=== PATIENT | male | born 1975 | race Caucasian/White ===

== ENCOUNTER 2025-04-14 12:31 | Outpatient (OUT) | payer OTHER, SELFPAY | END 2025-04-14 12:32 | disposition home or self-care (01) | LOC: PST 12:31 | PROVIDERS: Visit Provider Urology | DX: Z01.818 Encounter for other preprocedural examination (principal); N20.0 Calculus of kidney ==

== ENCOUNTER 2025-04-15 06:28 | Day surgery (SDC) | payer OTHER, SELFPAY ==
[2025-04-15] VITALS (10 sets, daily range): BP systolic 107–129; BP diastolic 64–76; PULSE 69–93; TEMP 36.2–36.8; O2SAT 92–98; BMI 32.9
--- NOTE | 2025-04-15 06:31 | ECG_ITS ---
The [facility] Test Date: 2025-04-15 Pat Name: JONG MARTÍNEZ Department: Room: - Gender: Male Regulatory Affairs Director: : 1975 Requested By: LINDA NASH Order Number: [id number] Reading MD: Jose Luis Melara Measurements Intervals [place] Rate: 71 P: 46 [place]: 174 QRS: 61 QRSD: 98 T: 48 QT: 424 QTc: 463 Interpretive Statements SINUS RHYTHM LOW QRS VOLTAGE IN PRECORDIAL LEADS [QRS DEFLECTION < 1.0 mV IN CHEST LEADS] No previous ECG available for comparison Electronically Signed On 04-16-2025 13:32:28 EDT by Jose Luis Melara
[2025-04-15 06:56] LABS: Hematocrit 43.6 % (42.0-54.0); Hemoglobin 15.3 g/dL (14.0-18.0); Immature Granulocytes Abs Auto 0.02 10^3/uL (0.00-0.03); Immature Granulocytes Pct Auto 0.2 % (0.0-0.5); Lymphocytes Absolute Auto 1.4 10^3/uL (1.2-3.8); Mean Corpuscular HGB Conc 35.1 g/dL (29.9-35.2); Mean Corpuscular Hemoglobin 33.4 pg (25.9-34.0); Mean Corpuscular Volume 95.2 fL (80.0-94.0); Platelet Count 295 10^3/uL (150-450); Red Blood Count 4.58 10^6/uL (4.70-6.10); White Blood Count 9.3 10^3/uL (4.0-11.0)
[2025-04-15 06:58] LABS: Anion Gap 10.5; Blood Urea Nitrogen 15.0 mg/dL (7.0-18.0); Calcium 8.9 mg/dL (8.5-10.1); Carbon Dioxide 32.2 mmol/L (21.0-32.0); Chloride 101 mmol/L (98-107); Estimated GFR (African America >60 (>=60 mL/min/1.73m^2); Estimated GFR (Non-African Ame >60 (>=60 mL/min/1.73m^2); Glucose 98 mg/dL (74-106); Potassium 3.7 mmol/L (3.5-5.1); Sodium 140 mmol/L (136-145)
[2025-04-15 07:04] LABS: INR 1.07; Partial Thromboplastin Time 31.5 sec (22.3-36.2); Prothrombin Time 11.3 sec (9.0-11.6)
--- NOTE | 2025-04-15 07:17 | XR_ITS ---
The [address] [address] Patient Name: JONG MARTÍNEZ MRN: [id number] date: 1975 Sex: M Assigned Patient Location: [facility] Current Patient Location: [facility] Accession/Order Number: [id number] Exam Date: 04/15/2025 07:30 Report Date: 04/15/2025 10:16 At the request of: LINDA NASH MD Procedure: XR chest 1V PORTABLE AP ERECT CHEST 1720 hours CLINICAL HISTORY: preop clearance. Hx of CAD COMPARISON: None The heart is within normal limits. There is no vascular congestion. No consolidation is seen. There is no effusion or pneumothorax. The osseous structures are intact. XR/XR chest 1V IMPRESSION: NO ACUTE FINDINGS Impression dictated by: Kendra Ponce M.D. 04/15/2025 10:16 AM Dictation Location: [place] [address] Electronically authenticated by: [id number] Y Date: 04/15/2025 10:16
[2025-04-15] MEDS: CEFAZOLIN SODIUM 2 GM/50 ML D5W PREMIX IV (08:02)
[2025-04-15] MEDS: IOHEXOL 300 MG/ML - 50 ML BTL INJ (08:41)
--- NOTE | 2025-04-15 08:50 | P.URON_ITS ---
Urology Surgery Operative Note Operative Note Procedure Date: 04/15/25 Time Out Performed: yes Pre-op Diagnosis: Left ureteral and renal calculi Post-op Diagnosis: other (Impacted left ureteral calculi and massive hydroureteronephrosis) Procedures performed: 1. Cystoscopy. 2. Left retrograde pyelogram. 3. Left ureteroscopy. 4. Placement of 6 Mohawk variable length left ureteral stent Anesthesia: NISREEN Primary Surgeon: Óscar Redding Complications: None Estimated blood loss (mL): 5 Findings: 1. Severe impaction of ureteral calculi at L3-4 2. Severe ureteral stricture at L3-4. 3. Bulbar urethral stricture Specimens: None Drains: 6 Mohawk variable length left ureteral stent Indications for Procedures: This gentleman has gross hematuria and left flank pain. His CTU showed some ureteral calculi and left hydroureteronephrosis. He now presents for definitive ureteroscopic stone manipulation and left stent placement. He has signed an informed consent after risks were explained. Detailed description of Procedure: The patient was brought to the operating room and placed on the operating room table in the supine position. SCDs were placed on the lower extremities and turned on and functioning during the entire case. Timeout was done by all parties in the room. We all agreed upon the patient's identification and the planned procedures for this patient. Genn. anesthesia was then administered. The patient was then repositioned into the modified dorsal lithotomy position. All pressure points were satisfactorily padded. Genitalia were sterilely prepped and draped in usual fashion. I started by passing a 22 Mohawk Olympus cystoscope per urethra and into the bladder. He had a significant bulbar stricture but I was able to eventually get the scope through it and then into the bladder. Prostate showed by lobar obstruction. Panendoscopy in the bladder revealed no evidence of any stones or tumors. I then passed a Glidewire through the scope and cannulated the left ureter. I was able to get it up to the L3 level when it met resistance. Repeated attempt at passage eventually produced the wire to ascend beyond the area of concern and proximally. It appeared as though it was in the kidney but I was not certain. Therefore the scope was removed and I then passed a open-ended catheter over the wire up to the area. The wire was then removed. I then shot a retrograde through this area. Contrast would not go beyond this area. I then removed the catheter and then passed a semirigid ureteroscope through the urethra and into the bladder and up the left ureter. I was able to get to this area of concern. I could see a few stones tightly impacted to the ureteral wall. There was also stricture formation. I then passed a wire through the scope and eventually I was able to pass the wire proximal to these impacted stones anteriorly. The wire then went up and I could see the wire curling up near the 12th rib. The ureteroscope was then removed and I then repassed the open-ended catheter over the wire and was able to eventually get it beyond the area of stones. The wire was then removed and I then reshot a retrograde. This clearly showed massively dilated calyces and renal pelvis and proximal ureter down to the area at the L3-4 level. The wire was repassed back through the catheter and put up to the kidney. Catheter was removed. I then repassed the ureteroscope adjacent to the wire up the left ureter. Massive amounts of inflammatory debris were coming down from the kidney. I evaluated the area of concern and felt that it was unsafe at this time to attempt to laser and therefore the scope was then removed. I then backloaded the cystoscope over the wire and passed it into the bladder. I then slid a 6 Mohawk variable length ureteral stent over the wire and into the kidney. The wire was removed and there were good curls within the kidney and in the bladder. High-pressure E flux of cloudy debris was coming down through and around the stent into the bladder. The bladder was drained of its contents and the scope was then removed. He was then transferred to a [facility] bed and wheeled to PACU in stable condition. The plan is that he will cool down with the stent and antibiotics. We will bring him back for stone manipulation in a couple weeks.
== END 2025-04-15 10:45 | disposition home or self-care (01) ==
PROVIDERS: Visit Provider Urology
PROC: (CPT 910; principal; 2025-04-15 08:00)
DX: N13.2 Hydronephrosis with renal and ureteral calculous obstruction (principal); N13.1 Hydronephrosis with ureteral stricture, not elsewhere classified; N35.912 Unspecified bulbous urethral stricture, male; R31.0 Gross hematuria; Z87.442 Personal history of urinary calculi; R39.14 Feeling of incomplete bladder emptying; G47.33 Obstructive sleep apnea (adult) (pediatric); E78.5 Hyperlipidemia, unspecified; I10 Essential (primary) hypertension; K21.9 Gastro-esophageal reflux disease without esophagitis; E66.01 Morbid (severe) obesity due to excess calories; Z68.32 Body mass index [BMI] 32.0-32.9, adult
CPT/HCPCS: 52332; 52351; 36415; 71045; 74420; 80048; 85025; 85610; 85730; 93005; J0131; J0690; J1100; J1885; J2250; J2405; J2704; J3010; Q9967

== ENCOUNTER 2025-04-27 14:08 | Outpatient (OUT) | payer OTHER, SELFPAY ==
--- OUTSIDE RECORDS SUMMARY | 2025-04-27 14:11 | XMS_ITS | Encounter Summary ---
Author Organization [facility] Address [address] [place] [address] Care Team Providers Care Automotive Drivability Technician Name Role Phone Jessica Kent MD Primary Care Provider [phone] Shantell Cerna MD Unavailable Encounter Details Date Type Department Care Team ([facility] st Contact Info) Description 04/05/2025 Orders Only [facility] Family Medicine [address] [place] [address] Norma Balderas MD [address] [place] [address] Social History Tobacco Use Types Packs/Day Years Used Date Smoking Tobacco: Never Smokeless Tobacco: Never Alcohol Use Standard Drinks/Week Comments Not Currently 0 (1 standard drink = 0.6 oz pure alcohol) Caffeine intake: 3-4 cups per day PHQ-2 Answer Date Recorded Patient Health Questionnaire-2 Score 0 11/30/2024 Sex and Gender Information Value Date Recorded Sex Assigned at Not on file Legal Sex Male 7:21 PM EDT Gender Identity Not on file Sexual Orientation Not on file documented as of this encounter Plan of Treatment Not on file documented as of this encounter Procedures Procedure Name Priority Date/Time Associated Diagnosis Comments CT UROGRAM W AND WO IV CONTRAST Routine 04/02/2025 9:48 AM EDT documented in this encounter Results * CT UROGRAM W AND WO IV CONTRAST (04/02/2025 9:48 AM EDT) Anatomical Region Laterality Modality Ureter, Upper urinary tract Comp uted Tomography us Norma Andrey MD IMG CT PROCEDURES Final Result documented in this encounter Visit Diagnoses Not on filedocumented in this encounter Care Teams Automotive Drivability Technician Relationship Specialty Start Date End Date Jessica Kent MD [address] [place] [address] PCP - General Family Medicine 12/25/22 Shantell Cerna MD [address] [place] [address] PCP - Medical [place] [employer] 10/17/13 08/18/99 documented as of this encounter
--- OUTSIDE RECORDS SUMMARY | 2025-04-27 14:11 | XMS_ITS | Encounter Summary ---
Author Organization [facility] Address [address] [place] [address] Care Team Providers Care Costumer Assistant Name Role Phone Jessica Kent MD Primary Care Provider [phone] Shantell Cerna MD Unavailable [phone] Encounter Details Date Type Department Care Team ([facility] st Contact Info) Description 11/08/2023 Orders Only [facility] Family Medicine [address] [place] [address] Eliel Guardado MD [address] [place] [address], [address], [address] [address] Social History Tobacco Use Types Packs/Day Years Used Date Smoking Tobacco: Never Smokeless Tobacco: Never Alcohol Use Standard Drinks/Week Comments Not Currently 0 (1 standard drink = 0.6 oz pure alcohol) Caffeine intake: 3-4 cups per day Sex and Gender Information Value Date Recorded Sex Assigned at Not on file Legal Sex Male 7:21 PM EDT Gender Identity Not on file Sexual Orientation Not on file documented as of this encounter Plan of Treatment Not on file documented as of this encounter Procedures Procedure Name Priority Date/Time Associated Diagnosis Comments HM COLONOSCOPY Routine 10/29/2023 4:30 PM EDT documented in this encounter Results * Hm Colonoscopy (10/29/2023 4:30 PM EDT) Anatomical Region Laterality Modality Other Eliel Guardado MD HEALTH MAINTENANCE Final Res ult documented in this encounter Visit Diagnoses Not on filedocumented in this encounter Care Teams Costumer Assistant Relationship Specialty Start Date End Date Jessica Kent MD [address] [place] [address] PCP - General Family Medicine 12/25/22 Shantell Cerna MD [address] [place] [address] PCP - Medical [place] [employer] 10/17/13 08/18/99 documented as of this encounter
--- OUTSIDE RECORDS SUMMARY | 2025-04-27 14:11 | XMS_ITS | Clinical Summary ---
Author Organization [facility] Healthcare Address [address] [place] [address] Care Team Providers Care Collator Name Role Phone Jessica Kent MD Primary Care Provider [phone] Shantell Cerna MD Unavailable [phone] Allergies Active Allergy Reactions Criticality Noted Date Comments Hydrocodone-Acetaminophen Nausea Only 4 Vicodin Lisinopril 09/05/2023 Other Reaction(s): dizziness and CP Medications aspirin 81 MG EC tablet 1 (one) time each day at the same time Active nitroglycerin (Nitrostat) 0.3 MG SL tablet if needed 08/21/19 23 Active cyclobenzaprine (Flexeril) 10 MG tabletIndications: Chronic pain syndrome TAKE 1/2 TO 1 TABLET ORALLY THREE TIMES A DAY NEEDED 60 tablet 2 09/15/19 25 Active Semaglutide-Weight Management (Wegovy) 0.25 MG/0.5ML solution auto-injectorIndic ations:Morbid obesity ([facility]) Inject 0.25 mg under the skin 1 (one) time per week 2 mL 12/01/19 25 Active azithromycin (Zithromax) 250 MG tabletIndications: Sinus pressure Take 2 tabs PO x 1 day then 1 tab PO daily x 4 days 6 tablet 12/01/19 25 Active ranolazine (Ranexa) 500 MG 12 hr tabletIndications: Arteriosclerosis of coronary artery Take 1 tablet (500 mg) by mouth in the morning and 1 tablet (500 mg) before bedtime. 180 tablet 3 12/01/19 25 026 Active metoprolol succinate XL (Toprol-XL) 25 MG 24 hr tabletIndications: Benign essential HTN Take 0.5 tablets (12.5 mg) by mouth Daily 15 tablet 11 01/02/20 25 Active etodolac XL (Lodine XL) 600 MG 24 hr tabletIndications: Other chronic pain Take 1 tablet (600 mg) by mouth Daily as needed (pain) 30 tablet 3 01/21/20 25 Active losartan (Cozaar) 25 MG tabletIndications: Primary hypertension TAKE 1 TABLET BY MOUTH EVERY DAY 30 tablet 11 03/16/20 25 Active hydroCHLOROthiazid e (HYDRODiuril) 25 MG tabletIndications: Primary hypertension TAKE 1 TABLET BY MOUTH EVERY DAY IN THE MORNING 30 tablet 11 03/16/20 25 Active atorvastatin (Lipitor) 80 MG tabletIndications: Mixed hyperlipidemia TAKE 1 TABLET BY MOUTH EVERY DAY 30 tablet 11 04/12/20 25 Active isosorbide mononitrate ER (Imdur) 60 MG 24 hr tabletIndications: Essential hypertension TAKE 1 TABLET (60 MG) BY MOUTH IN THE MORNING 30 tablet 11 04/12/20 25 026 Active atorvastatin (Lipitor) 80 MG tabletIndications: Mixed hyperlipidemia TAKE 1 TABLET BY MOUTH EVERY DAY 30 tablet 04/16/20 24 025 Discontinued isosorbide mononitrate ER (Imdur) 60 MG 24 hr tabletIndications: Essential hypertension TAKE 1 TABLET (60 MG) BY MOUTH IN THE MORNING 30 tablet 11 04/16/20 24 025 Discontinued Active Problems Problem Noted Date Diagnosed Date Asymptomatic microscopic hematuria 01/21/2024 Bilateral low back pain 01/21/2024 Severe obesity (BMI 35.0-39.9) with comorbidity 01/21/2024 Arteriosclerosis of coronary artery 01/21/2024 Coronary artery disease invo lving [place] heart without angina pectoris 01/21/2024 DDD (degenerative disc disease), cervical 2023 Gastroesophageal reflux disease 01/21/2024 Hemorrhoids 01/21/2024 History of kidney stones 01/21/2024 Impingement syndrome of shoulder region 01/21/20 24 Mixed hyperlipidemia 01/21/2024 Seasonal allergies 01/21/2024 Hypertension 01/21/2024 Essential hypertension 05/20/2023 Resolved Problems Problem Noted Date Diagnosed Date Resolved Date Coronary artery disease of n ative artery of [place] heart with stable angina pectoris 01/21/2024 06/05/2024 Encounters Date Type Department Care Team Description [facility] [address] [place] [phone] Jessica Kent MD Mixed hyperlipidemia ; Essential hypertension 04/05/2025 Orders Only [facility] [address] [place] [phone] Norma Balderas MD 03/16/2025 Refill [facility] [address] [place] [phone] Shantell Cerna MD Primary hypertension from Last 3 Months Immunizations Immunization Administration Dates Next Due Tdap 10/18/2008 Tetanus toxoid, adsorbed 10/18/2008 Family History Medical History Relation Name Comments Alzheimer's disease Father Dementia Father Heart attack Father Relation Name Status Comments Brother x2 Daughter x2 Father Mother Alive Sister x6 Social History Tobacco Use Types Packs/Day Years Used Date Smoking Tobacco: Never Smokeless Tobacco: Never Tobacco Cessation:Counseling Given: Not Answered Alcohol Use Standard Drinks/Week Comments Not Currently 0 (1 standard drink = 0.6 oz pure alcohol) Caffeine intake: 3-4 cups per day PHQ-2 Answer Date Recorded Patient Health Questionnaire-2 Score 0 11/30/2024 Sex and Gender Information Value Date Recorded Sex Assigned at Not on file Legal Sex Male 7:21 PM EDT Gender Identity Not on file Sexual Orientation Not on file Last Filed Vital Signs Vital Sign Reading Time Taken Comments Blood Pressure 130/80 11/30/2024 3:59 PM EDT Pulse 98 11/30/2024 3:59 PM EDT Temperature 36.9 C (98.4 F) 11/30/2024 3:59 PM EDT Respiratory Rate - - Oxygen Saturation 98% 11/30/2024 3:59 PM EDT Inhaled Oxygen Concentration - - Weight 116 kg (255 lb 3.2 oz) 11/30/2024 3:59 PM EDT Height 172.7 cm (5' 8 ) 11/30/2024 3:59 PM EDT Body Mass Index 38.8 11/30/2024 3:59 PM EDT Plan of Treatment Health Maintenance Due Date Last Done Comments CT Colonography 1975 FIT-DNA 1975 FIT 1975 FOBT 1975 Sigmoidoscopy 1975 Influenza Vaccine (#1) 2025 Colonoscopy 10/28/2033 10/29/2023, 10/29/2023 Colorectal Cancer Screening 10/28/2033 Procedures Procedure Name Priority Date/Time Associated Diagnosis Comments CT UROGRAM W AND WO IV CONTRAST Routine 04/02/2025 9:48 AM EDT HM COLONOSCOPY Routine 10/29/2023 4:30 PM EDT from Last 3 Months or Most Recently Relevant to Health Maintenance Results * CT UROGRAM W AND WO IV CONTRAST (04/02/2025 9:48 AM EDT) Anatomical Region Laterality Modality Ureter, Upper urinary tract Comp uted Tomography us Norma Balderas MD IMG CT PROCEDURES Final Result * Colonoscopy (10/29/2023 4:30 PM EDT) Anatomical Region Laterality Modality Other us Eliel Guardado MD HEALTH MAINTENANCE Final Res ult from Last 3 Months or Most Recently Relevant to Health Maintenance Insurance [employer] Care Teams Collator Relationship Specialty Start Date End Date Jessica Kent MD [address] [place] [address] PCP - General Family Medicine 12/25/22 Shantell Cerna MD [address] [place] [address] PCP - Medical [facility] 10/17/13 08/18/99
--- OUTSIDE RECORDS SUMMARY | 2025-04-27 14:11 | XMS_ITS | Clinical Summary ---
Author Organization [facility] Address [address] [place] [address] Phone Care Team Providers Care Assistant Operator Name Role Phone Unavailable Primary Care Provider Unavailabl e Social History Tobacco Use Types Packs/Day Years Used Date Smoking Tobacco: Never Assessed Sex and Gender Information Value Date Recorded Sex Assigned at Not on file Legal Sex Male 2:32 PM EST Gender Identity Not on file Sexual Orientation Not on file Plan of Treatment Health Maintenance Due Date Last Done Comments CT Colonography 1975 Colonoscopy 1975 Colorectal Cancer Screening 1975 FIT-DNA (Cologuard) 1975 FIT 1975 HIV Screening 1975 Lipid Panel 1975 Sigmoidoscopy 1975 Yearly Adult Physical 1975 MMR Vaccines (1 of 1 - Stand payal series) 1975 Hepatitis C Screening 1992 Hepatitis B Vaccines (1 of 3 - 19+ 3-dose series) 1993 DTaP/Tdap/Td Vaccines (1 - Tdap) 1996 PSA Prostate Cancer Screening 2024 Pneumococcal Vaccine (1 of 1 - PCV) 2024 Zoster Vaccines (1 of 2) 2024 COVID-19 Vaccine (1 - 2023-2 5 season) 2025 Influenza Vaccine (#1) 2025 HIB Vaccines Aged Out No longer eligi ble based on patient's age to complete this topic HPV Vaccines Aged Out No longer eligi ble based on patient's age to complete this topic Hepatitis A Vaccines Aged Out No long er eligible based on patient's age to complete this topic IPV Vaccines Aged Out No longer eligi ble based on patient's age to complete this topic Meningococcal Vaccine Aged Out No liz jolynn eligible based on patient's age to complete this topic Rotavirus Vaccines Aged Out No longer eligible based on patient's age to complete this topic
== END 2025-04-27 14:09 | disposition home or self-care (01) ==
LOC: PST 14:08
PROVIDERS: Visit Provider Urology
DX: Z01.818 Encounter for other preprocedural examination (principal); N20.0 Calculus of kidney

== ENCOUNTER 2025-05-06 06:56 | Day surgery (SDC) | payer OTHER, SELFPAY ==
[2025-05-06] VITALS (12 sets, daily range): BP systolic 111–128; BP diastolic 69–81; PULSE 67–91; TEMP 36.2–36.3; O2SAT 95–100; BMI 31.9
--- OUTSIDE RECORDS SUMMARY | 2025-05-06 06:59 | XMS_ITS | Clinical Summary ---
Author Organization [facility] Address [address] [place] [address] Phone Care Team Providers Care Fabric Pattern Grader Name Role Phone Unavailable Primary Care Provider [...]
--- OUTSIDE RECORDS SUMMARY | 2025-05-06 06:59 | XMS_ITS | Clinical Summary ---
Author Organization [facility] Healthcare Address [address] [place] [address] Care Team Providers Care Server Security Administrator Name Role Phone Jessica Kent MD Primary Care Provider [phone] Shantell Cerna MD Unavailable [phone] Allergies Active Allergy Reactions Criticality Noted [...] (Wegovy) 0.25 MG/0.5ML solution auto-injectorIndic ations:Morbid obesity ([facility]) Inject 0.25 mg under the skin 1 [...] artery 01/21/2024 Coronary artery disease invo lving [place] heart without angina pectoris 01/21/2024 DDD (degenerative disc disease), cervical 2023 Gastroesophageal reflux disease 01/21/2024 Hemorrhoids 01/21/2024 History of kidney stones 01/21/2024 Impingement syndrome of shoulder region 01/21/20 24 Mixed hyperlipidemia 01/21/2024 Seasonal allergies 01/21/2024 Hypertension 01/21/2024 Essential hypertension 05/20/2023 Resolved Problems Problem Noted Date Diagnosed Date Resolved Date Coronary artery disease of n ative artery of [place] heart with stable angina pectoris 01/21/2024 06/05/2024 Encounters Date Type Department Care Team Description 04/12[facility] [address] [place] [phone] Jessica Kent MD Mixed hyperlipidemia ; Essential hypertension 04/05/2025 Orders Only [facility] [address] [place] [phone] Norma Balderas MD 03/16/2025 Refill N[facility] [address] [place] [phone] Shantell Cerna MD Primary hypertension from Last [...] Health Maintenance Insurance [employer] Care Teams Server Security Administrator Relationship Specialty Start Date End Date Jessica Kent MD [address] [place] [address] PCP - General Family Medicine 12/25/22 Shantell Cerna MD [address] [place] [address] PCP - Medical [facility] 10/17/13 08/18/99
--- OUTSIDE RECORDS SUMMARY | 2025-05-06 06:59 | XMS_ITS | Encounter Summary ---
Author Organization [facility] Address [address] [place] [address] Care Team Providers Care Rolling Chair Pusher Name Role Phone Jessica Kent MD Primary Care Provider Shantell Cerna MD Unavailable Encounter Details Date Type Department Care Team ([facility] st Contact Info) Description 04/05/2025 Orders Only [facility] Family Medicine [address] [place] [address] Norma Balderas MD [address] [place] [address] Social History Tobacco Use Types Packs/Day Years [...] on filedocumented in this encounter Care Teams Rolling Chair Pusher Relationship Specialty Start Date End Date Jessica Kent MD [address] [place] [address] PCP - General Family Medicine 12/25/22 Shantell Cerna MD [address] [place] [address] PCP - Medical [place] [employer] 10/17/13 08/18/99 documented as of this encounter
[2025-05-06] MEDS: CEFAZOLIN SODIUM 2 GM/50 ML D5W PREMIX IV (08:47)
--- NOTE | 2025-05-06 10:03 | P.URON_ITS ---
Urology Surgery Operative Note Operative Note Procedure Date: 05/06/25 Time Out Performed: yes Pre-op Diagnosis: Impacted left ureteral calculi; left ureteral stricture status post stent placement Post-op Diagnosis: same as pre-op Procedures performed: 1. Cystoscopy. 2. Left stent changed to 7 Burkinan variable length. 3. Left ureteroscopy. 4. Thulium laser lithotripsy of left ureteral calculi. 5. Stone basket extraction from left ureter. 6. Left pyeloscopy. Anesthesia: GETA Primary Surgeon: Óscar Redding Complications: None Estimated blood loss (mL): 5 Findings: 1. Severely impacted multiple left ureteral calculi at L3 and UPJ. 2. L3 stricture in the left ureter. #3. Bulbar urethral stricture Specimens: Left ureteral calculi Drains: 7 Burkinan variable length left ureteral stent. Indications for Procedures: This gentleman has multiple left ureteral calculi which are impacted in his ureter at the L3 level and at the UPJ. He has been stented. He now presents for ureteroscopic stone manipulation and possible stent change or removal. He has signed an informed consent after risks were explained. Some of these include bleeding, infection, anesthesia, ureteral stricture and the possible need for further procedures to name a few. Detailed description of Procedure: The patient was brought to the operating room and placed on the operating room table in the supine position. SCDs were placed on the lower extremities and turned on and functioning during the entire case. Timeout was done by all parties in the room. We all agreed upon the patient's identification and the planned procedures for this patient. Genn. anesthesia was then administered. The patient was then repositioned into the modified dorsal lithotomy position. All pressure points were satisfactorily padded. Genitalia were sterilely prepped and draped in usual fashion. I started by passing a 22 Burkinan Olympus cystoscope per urethra and into the bladder. He had a stricture at the bulb of the urethra. I was able to get the scope through this and into the bladder. The stent was not encrusted. A grasper was passed and the end of the stent was brought out the urethral meatus. I then slid a Glidewire through the stent into the kidney and removed the old stent. I then passed a 10/12 Burkinan ureteral access sheath over the wire and up to the L5 position. The wire and stylette were then removed I then passed a flexible ureteroscope through the access sheath and into the ureter. I ascended up the ureter and arrived at a tight group of packed stones that were impacted at the L3 level. I then passed a 200 Angstrom laser fiber through the scope and made contact with the stone. The thulium laser was used at 8 W under the fragmentation mode. I was able to crack up all these stones. They were tightly impacted into the wall of the ureter. The laser fiber was used to chisel these off and the 0 tip nitinol basket was used to extract multiple pieces and these were sent for analysis. Once I lasered enough so as the scope could go through the ureter proximally I then arrived at the UPJ where there was another group of tightly packed stones that were impacted. I similarly lasered these and then went into the kidney and lasered more within the renal pelvis. The rest of the calyces had numerous Oy plaques but no other stones. I then brought the scope back to the 2 areas of stone impaction and chiseled off all of the remaining stones and lasered them. Upon completion, both of these previously strictured areas with impacted stones were now wide open and there was no stone remaining. This situation was very concerning for future recurrent stricture formation. A Glidewire was then passed through the scope into the kidney and the scope and sheath were then removed. Cystoscope was backloaded over the wire and passed into the bladder and I then slid a 7 Burkinan variable length stent over the wire up to the kidney. The wire was removed and there were good curls in the kidney and in the bladder. The bladder was drained of its contents and the scope was then removed. The anesthetic was then reversed. He was then transferred to a [facility] bed and wheeled to PACU in stable condition.
[2025-05-06] MEDS: HYOSCYAMINE SULFATE 0.125 MG TAB.SUBL 0.25 MG SL (10:39)
== END 2025-05-06 11:18 | disposition home or self-care (01) ==
PROVIDERS: Visit Provider Urology
PROC: (CPT 918; principal; 2025-05-06 08:25)
DX: N20.1 Calculus of ureter (principal); N13.5 Crossing vessel and stricture of ureter without hydronephrosis; N35.912 Unspecified bulbous urethral stricture, male; I25.10 Atherosclerotic heart disease of native coronary artery without angina pectoris; I10 Essential (primary) hypertension; R31.9 Hematuria, unspecified; Z87.442 Personal history of urinary calculi; E78.5 Hyperlipidemia, unspecified; N52.9 Male erectile dysfunction, unspecified; Z98.52 Vasectomy status; G47.33 Obstructive sleep apnea (adult) (pediatric); G89.29 Other chronic pain; M19.90 Unspecified osteoarthritis, unspecified site
CPT/HCPCS: 52356; 76000; 82365; 99999; J0690; J1100; J1885; J2250; J2405; J2704; J3010

== ENCOUNTER 2025-05-27 09:05 | Day surgery (SDC) | payer OTHER, SELFPAY ==
[2025-05-27] VITALS (10 sets, daily range): BP systolic 118–135; BP diastolic 72–85; PULSE 61–92; TEMP 36.1–36.3; O2SAT 93–99; BMI 30.3
[2025-05-27 09:31] LABS: INR 1.04; Partial Thromboplastin Time 32.2 sec (22.3-36.2); Prothrombin Time 11.0 sec (9.0-11.6)
[2025-05-27] MEDS: CEFAZOLIN SODIUM 2 GM/50 ML D5W PREMIX IV (11:08)
--- NOTE | 2025-05-27 12:28 | P.URON_ITS ---
Urology Surgery Operative Note Operative Note Procedure Date: 05/27/25 Time Out Performed: yes Pre-op Diagnosis: Right ureteral calculus Post-op Diagnosis: other (Impacted right ureteral calculus) Procedures performed: 1. Cystoscopy. 2. Right ureteroscopy. 3. Thulium laser lithotripsy of right ureteral calculus. 4. Stone fragment basket extraction. 5. Right pyeloscopy. 6. Placement of 7 Paraguayan variable length right ureteral stent Anesthesia: NISREEN Primary Surgeon: Óscar Redding Complications: None Estimated blood loss (mL): 5 Findings: Severely impacted right ureteral calculus at L3-4 level. Specimens: Ureteral calculus fragments Drains: 7 Paraguayan variable length right ureteral stent Indications for Procedures: This gentleman has a 5 to 7 mm right ureteral calculus that he is unable to pass. He now presents for definitive ureteroscopic stone manipulation and possible stent placement. He has signed an informed consent after risks were explained. Detailed description of Procedure: The patient was brought to the operating room and placed on the operating room table in the supine position. SCDs were placed on the lower extremities and turned on and functioning during the entire case. Timeout was done by all parties in the room. We all agreed upon the patient's identification and the planned procedures for this patient. Genn. anesthesia was then administered. The patient was then repositioned into the modified dorsal lithotomy position. All pressure points were satisfactorily padded. Genitalia were sterilely prepped and draped in usual fashion. I started by passing a 22 [place] Olympus cystoscope per urethra and into the bladder. Anterior urethra was normal aside from a mild bulbar stricture. 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 Panendoscopy in the bladder showed no evidence of any stones lesions or foreign bodies. I then passed a Glidewire through the scope up the right ureter and it buckled at the L3-4 level. 1 could see a stone at the tip of the wire. I then passed a 6 Paraguayan open-ended catheter over the wire and this allowed me to manipulate the wire well enough to get it beyond the stone into the kidney. Catheter was removed. I then passed a 10/12 Paraguayan ureteral access sheath over the wire up to the L5 level. Stylette and wire were then removed. Flexible ureteroscope was passed through the sheath and into the ureter. As I ascended up the ureter and arrived at the L3-4 region 1 could see the impacted stone. I then passed a 270 Angstrom laser fiber through the scope. I used the fiber to chisel the stone off of the ureteral lining circumferentially. I then began lasering the stone at 6 W fragmentation mode with the thulium laser. I was able to very carefully and safely laser the stone such that I could use a 0 tip nitinol basket and engage pieces and extract them down. I then was able to get the scope beyond this area and into the kidney and laser pieces that fell into the kidney. I then brought the ureteroscope back to the ureter after looking at all the upper mid and lower pole calyces and finding no other stones but just a few Yo's plaques. I finished lasering residual calculi pieces in the ureter. 1 could see that the ureter was very negatively affected by this stone. 1 could see stricture formation taking place in this area from the impacted stone. The ureter of course was extremely friable in this area. After verifying that all stone pieces were removed the scope was th en removed after a wire was passed through it into the kidney. Access sheath was removed and cystoscope was backloaded over the wire and passed in the bladder. A 7 Paraguayan variable length stent was passed over the wire up into the kidney. Wire was removed and there were good curls in the kidney and in the bladder. Bladder was drained of its contents and the scope was then removed. Anesthetic was then reversed. He was then transferred to PACU in stable condition.
[2025-05-27] MEDS: SOLIFENACIN SUCCINATE 10 MG TABLET PO (12:52)
== END 2025-05-27 13:50 | disposition home or self-care (01) ==
PROVIDERS: Visit Provider Urology
PROC: (CPT 918; principal; 2025-05-27 10:50)
DX: N20.1 Calculus of ureter (principal); I25.10 Atherosclerotic heart disease of native coronary artery without angina pectoris; Z87.442 Personal history of urinary calculi; Z98.52 Vasectomy status; Z79.899 Other long term (current) drug therapy; G47.33 Obstructive sleep apnea (adult) (pediatric); E78.5 Hyperlipidemia, unspecified; I10 Essential (primary) hypertension; G89.29 Other chronic pain; K21.9 Gastro-esophageal reflux disease without esophagitis
CPT/HCPCS: 52356; 36415; 76000; 82365; 85610; 85730; 99999; J0690; J1100; J1885; J2250; J2405; J2704; J3010